=== PATIENT | male | born 1930 | race Caucasian/White ===

== ENCOUNTER 2018-12-16 16:29 | Day surgery (SDC) | payer MEDICARE, BC ==
[~2018-12-16 16:29] MED LIST: CLINDAMYCIN 900 MG/D5W (PMX) 50 ML IVPB
[2018-12-16] MEDS ORDERED: OXYCODONE/ACETAMINOPHEN (5/325) TAB PO ×2 (17:30→18:00)
[2018-12-16] MEDS ORDERED: ONDANSETRON 4 MG INJ IV (18:00)
[2018-12-16] MEDS ORDERED: EPHEDrine 25 MG/5 ML SYG IV (18:00)
[2018-12-16] MEDS ORDERED: METOCLOPRAMIDE 10 MG INJ IV (18:00)
[2018-12-16] MEDS ORDERED: FENTAnyl 50 MCG/ML VIAL IV ×2 (18:00)
[2018-12-16] MEDS ORDERED: LABETALOL HCL 20MG INJ IV (18:00)
[2018-12-16] MEDS ORDERED: MIDAZOLAM 1 MG/ML 2 ML INJ IV (18:00)
[2018-12-16] MEDS ORDERED: hydrALAzine 20 MG INJ IV (18:00)
[2018-12-16] MEDS ORDERED: MEPERIDINE 25 MG INJ IV (18:00)
[2018-12-16] MEDS ORDERED: DIPHENHYDRAMINE 50 MG INJ IV (18:00)
[2018-12-16] MEDS ORDERED: PROPOFOL 20 ML (18:10)
[2018-12-16] MEDS ORDERED: FENTAnyl 50 MCG/ML VIAL (18:11)
[2018-12-16] MEDS ORDERED: MIDAZOLAM 1 MG/ML 2 ML INJ (18:11)
[2018-12-16] MEDS ORDERED: CLINDAMYCIN 900 MG/D5W (PMX) 50 ML IVPB (18:21)
[2018-12-16] MEDS: BUPIVACAINE 0.5% (SDV) 30 ML INJ (18:36)
[2018-12-16] MEDS: FENTAnyl 50 MCG/ML VIAL IV ×2 (19:07→19:13)
[2018-12-16] MEDS: LACTATED RINGER'S 1,000 ML IV (19:13)
[2018-12-16] MEDS: OXYCODONE/ACETAMINOPHEN (5/325) TAB PO (19:32)
== END 2018-12-16 19:59 | disposition home or self-care (01) ==
LOC: SDS 16:29
DX: G56.02 Carpal tunnel syndrome, left upper limb (principal); E03.9 Hypothyroidism, unspecified; J44.9 Chronic obstructive pulmonary disease, unspecified
CPT/HCPCS: 64721